=== PATIENT | female | born 1965 | race Caucasian/White ===

== ENCOUNTER → 2017-05-08 | Outpatient (CLI) | payer OTHER ==
--- NOTE | 2017-05-08 12:09 | RAD ---
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 Technique: Ultrasound of the thyroid bed and the cervical chains was performed. Comparison is from July 07, 2015, reportedly a preoperative study. Findings: In the region of the left thyroid bed there is a 1.9 x 1.0 x 0.6 cm hyperechoic focus containing a 4 mm hypoechoic focus. This could represent some residual thyroid tissue and a small residual thyroid nodule. Similar findings is noted on the right, measuring 1.1 x 0.6 x 0.3 cm. On the left, there are several small lymph nodes noted, the largest 2 measure 8 x 5 and 8 x 6 mm in size. Impression: 1. Potential residual thyroid tissue noted bilaterally. Within this apparent residual tissue on the left there is a 4 mm nodule. 2. Subcentimeter lymph nodes along the left cervical chain may be reactive.
== END | disposition home or self-care (01) ==
LOC: US 08:51
DX: D34 Benign neoplasm of thyroid gland (principal); E04.1 Nontoxic single thyroid nodule; E89.0 Postprocedural hypothyroidism
CPT/HCPCS: 76536

== ENCOUNTER → 2018-04-11 | Outpatient (CLI) | payer OTHER ==
--- NOTE | 2018-04-11 16:17 | RAD ---
Indication: Follow-up thyroid nodules TECHNIQUE: Ultrasound of the thyroid COMPARISON: 05/08/2017 FINDINGS: The residual right thyroid tissue measures 0.5 x 1.2 x 0.6 cm, previously 0.6 x 1.1 x 0.3 cm. Morphologically normal-appearing nonenlarged right neck lymph nodes are seen. The residual left thyroid tissue measures 0.8 x 2.0 x 0.7 cm, previously 0.6 x 1.9 x 0.6 cm. Hypoechoic oval-shaped nodule is seen in the left thyroid measuring 0.4 x 0.3 x 0.5 cm, previously 0.4 x 0.3 x 0.4 cm. Another hypoechoic nodule is seen measuring 0.3 x 0.2 x 0.3 cm, previously 0.4 x 0.2 x 0.3 cm. Normal-appearing lymph node is seen in the right neck base. IMPRESSION: 1. Slight interval increase in the size of right residual thyroid tissue. Relatively stable left thyroid tissue. 2. Stable hypoechoic left thyroid nodules. Follow-up as clinically indicated. Electronically signed by: Juan Juarez DO (04/11/2018 4:14 PM) [id number]
== END | disposition home or self-care (01) ==
LOC: US 14:41
PROVIDERS: ATTEND Internal Medicine Endocrinology, Diabetes & Metabolism
DX: E04.2 Nontoxic multinodular goiter (principal)
CPT/HCPCS: 76536

== ENCOUNTER → 2019-06-27 | Outpatient (CLI) | payer OTHER ==
--- NOTE | 2019-06-27 16:27 | RAD ---
THYROID ULTRASOUND History: Benign neoplasm of the thyroid gland, history of partial thyroidectomy Comparison: April 11, 2018 Findings: Multiple sonographic images of residual thyroid gland are submitted. Residual right lobe measured 1.3 x 0.9 x 0.5 cm. Residual left lobe measured 1.5 x 0.8 x 0.8 cm. There is a small hypoechoic lesion of the residual left thyroid tissue superiorly 0.4 x 0.2 x 0.2 cm, minimal internal echoes. This previously was measured at 0.3 x 0.3 x 0.2 cm. There is again small hypoechoic lesion of the inferior left residual thyroid tissue about 0.6 x 0.4 x 0.5 cm, areas of internal echogenicity although peripherally relatively hypoechoic. This previously measured 0.5 x 0.4 x 0.3 cm. Neither of these are associated with internal vascularity on color Doppler imaging. No significantly enlarged nodes of the neck are demonstrated. Impression: 1. There are 2 avascular small nodules of the residual left thyroid gland with measurements very slightly larger than previously, no discrete nodularity of residual right thyroid tissue. Electronically signed by: Alli Mosley MD (06/27/2019 4:24 PM) [id number]
== END | disposition home or self-care (01) ==
LOC: US 10:34
PROVIDERS: ATTEND Internal Medicine Endocrinology, Diabetes & Metabolism
DX: E04.2 Nontoxic multinodular goiter (principal); E89.0 Postprocedural hypothyroidism
CPT/HCPCS: 76536

== ENCOUNTER → 2019-07-02 | Outpatient (CLI) | payer OTHER ==
--- NOTE | 2019-07-02 18:38 | RAD ---
EXAM: Dual energy x-ray absorptiometry (DEXA). HISTORY: Postmenopausal female presents for osteoporosis screening. Thyroidectomy. COMPARISON: 05/07/2012 and 12/19/2005. TECHNIQUE: Dual energy x-ray absorptiometry of the lumbar spine and both hips was performed. Calculation of bone mineral density based on standard deviations above or below the expected young adult normal value (T-score) was completed. FINDINGS: The average bone mineral density in the 1st through 4th lumbar vertebrae is 0.818 g/cmxcm, corresponding with a T-score of -3.0. There has been a 15% decrease in density of the lumbar spine compared to the baseline exam performed 12/19/2005. The average total bone mineral density in the right hip is 0.746 g/cmxcm, corresponding with a T-score of -1.7. There has been a 12.2% decrease in density of the right hip compared to a baseline study dated 12/19/2005. IMPRESSION: 1. Osteoporosis measured at the lumbar spine. 2. Osteopenia measured at the right hip. Note: Definitions established by the World Health Organization: 1. Normal: T-score is -1.0 or above. 2. Osteopenia: T-score is between -1.0 and -2.5 . 3. Osteoporosis: T-score is -2.5 or below. Electronically signed by: Tasneem Bray MD (07/02/2019 3:56 PM) [facility] [place]
== END | disposition home or self-care (01) ==
LOC: DXRAD 15:01
DX: M81.0 Age-related osteoporosis without current pathological fracture (principal)
CPT/HCPCS: 77080

== ENCOUNTER → 2020-10-28 | Outpatient (CLI) | payer OTHER ==
--- NOTE | 2020-10-28 13:50 | RAD ---
EXAM: DUAL ENERGY X-RAY ABSORPTIOMETRY (DEXA). HISTORY: Postmenopausal screening. FINDINGS: The lowest measured T-score is -3.0 in the lumbar spine, based on a bone mineral density of 0.8-3 g/cm^2. Refer to the worksheets for full detail. There has been a 14.4 percent decrease in density of the lumbar spine and 9.0 percent decrease in den sity of the right hip compared to a baseline exam performed 12/19/2005. IMPRESSION: 1. Osteoporosis. Bone mineral density yields a T-score of -2.5 or less. Fracture risk is high. 2. FRAX report: Not calculated. METHODOLOGY: Dual energy x-ray absorptiometry was performed to measure bone mineral density. The foll owing analysis is based on the 2019 Official Positions of the International Society for Clinical Dens itometry: Measurements of the hips and the average of L1-L4 are preferred. When the spine and/or hip cannot be feasibly measured or interpreted, or in the setting of hyperparathyroidism, distal radial bone minera l density may be measured. The lumbar spine T-score is based on the average bone mineral density of L1-L4. In the setting of art ifact or anatomic abnormality, some lumbar levels may be excluded, and the remaining levels used for calculation. A single lumbar level is not used for diagnosis, and if only a single level is available for assessment, another anatomic site will be used to assign a diagnosis. The hip T-score is based on the bone mineral density measurement of the femoral neck or total proxima l femur of either side, whichever is lowest. Bilateral mean values are not used for diagnosis. The forearm T-score is derived from 33% of the distal radius of the nondominant forearm. Electronically signed by: Tasneem Bray MD (10/28/2020 1:48 PM) [id number]
== END ==
LOC: DXRAD 12:45
PROVIDERS: ATTEND Family Medicine
DX: M81.8 Other osteoporosis without current pathological fracture (principal); M85.88 Other specified disorders of bone density and structure, other site
CPT/HCPCS: 77080